=== PATIENT | male | born 1930 | race Caucasian/White ===

== ENCOUNTER 2020-03-26 12:12 | Inpatient (IN) | payer MEDICARE, OTHER ==
--- NOTE | 2020-03-26 12:43 | ER Document Report ---
ED Medical Screen (RME) - General Chief Complaint: Edema Stated Complaint: FLUID BUIDLING UP IN BODY Time Seen by Provider: 03/26/20 12:34 Primary Care Provider: FRANCISCA MARQUIS MD [Primary Care Provider] - Follow up as needed Mode of Arrival: Wheelchair Information source: Patient Notes: HPI; 89-year-old male presents emergency room complaining of worsening fluid buildup. States been going on for several months is gotten worse over the past 3 weeks. He has been followed by Dr. Hicks. Was scheduled for an echocardiogram this morning was sent to the emergency room prior to the echo due to worsening fluid buildup. Patient states he has gained 11 pounds in the past week. PE: Alert and oriented x3. Moderate distress noted. Lungs diminished in the bases with right rales noted. No wheezes, no rhonchi. Heart bradycardic and rhythm without murmurs, rubs, gallops. 3+ pitting edema. I have greeted and performed a rapid initial assessment of this patient. A comprehensive ED assessment and evaluation of the patient, analysis of test results and completion of the medical decision making process will be conducted by additional ED providers. I have specifically instructed the patient or family members with the patient to immediately return to any nursing staff should anything change in the patient's condition or with their chief complaint. - Related Data Allergies/Adverse Reactions: Sulfa (Sulfonamide Antibiotics) Adverse Reaction (Mild, Verified 11/19/13 09:24) swelling of joint Home Medications: lasix, Crestor Past Medical History - Past Medical History Cardiac Medical History: Reports: Hx Heart Attack - 2005, Hx Hypertension - medicated Pulmonary Medical History: Denies: Hx Asthma Neurological Medical History: Denies: Hx Cerebrovascular Accident, Hx Seizures GI Medical History: Reports: Hx Hepatitis - 1951??. Denies: Hx Hiatal Hernia, Hx Ulcer Infectious Medical History: Reports: Hx Hepatitis - 1?? Past Surgical History: Reports: Hx Open Heart Surgery - 2005. Denies: Hx Pacemaker Physical Exam - Vital signs Vitals: Temp Pulse Resp BP Pulse Ox 98.2 F 57 L 16 151/44 H 96 03/26/20 12:17 03/26/20 12:17 03/26/20 12:17 03/26/20 12:17 03/26/20 12:17 Course - Vital Signs Vital signs: Temp Pulse Resp BP Pulse Ox 98.2 F 57 L 16 151/44 H 96 03/26/20 12:37 03/26/20 12:17 03/26/20 12:17 03/26/20 12:17 03/26/20 12:17 Doctor's Discharge - Discharge Referrals: FRANCISCA MARQUIS MD [Primary Care Provider] - Follow up as needed
[2020-03-26 13:08] LABS: APPEARANCE,URINE CLEAR; BILIRUBIN,URINE NEGATIVE (NEGATIVE); COLOR,URINE YELLOW; GLUCOSE, URINE NEGATIVE (NEGATIVE); KETONES,URINE NEGATIVE (NEGATIVE); LEUKOCYTE ESTERASE,URINE LARGE (NEGATIVE); NITRITE,URINE NEGATIVE (NEGATIVE); PROTEIN,URINE 30 mg/dL (NEGATIVE); URINE SPECIFIC GRAVITY 1.009; UROBILINOGEN,URINE NEGATIVE mg/dL (<2.0)
--- NOTE | 2020-03-26 13:18 | RADIOLOGY REPORT (SQ) ---
EXAM DESCRIPTION: CHEST SINGLE VIEW IMAGES COMPLETED DATE/TIME: 03/26/2020 1:06 pm REASON FOR STUDY: Dyspnea COMPARISON: None. EXAM PARAMETERS: NUMBER OF VIEWS: One view. TECHNIQUE: Single frontal radiographic view of the chest acquired. RADIATION DOSE: NA LIMITATIONS: None. FINDINGS: LUNGS AND PLEURA: No opacities, masses or pneumothorax. Possible small left pleural effus ion, poorly visualized. MEDIASTINUM AND HILAR STRUCTURES: No masses. Contour normal. HEART AND VASCULAR STRUCTURES: Mild cardiac enlargement. BONES: No acute findings. HARDWARE: Sternotomy wires. OTHER: No other significant finding. IMPRESSION: MILD CARDIOMEGALY. POSSIBLE SMALL LEFT PLEURAL EFFUSION. TECHNICAL DOCUMENTATION: JOB ID: [id number] 2010 [employer]- All Rights Reserved Reading location - IP/workstation name: [email or web address]
[2020-03-26 13:42] LABS: ABSOLUTE EOSINOPHILS # (AUTO) 0.1 10^3/uL (0.0-0.6); ABSOLUTE LYMPHOCYTES (AUTO) 0.7 10^3/uL (0.5-4.7); ABSOLUTE MONOCYTES (AUTO) 0.6 10^3/uL (0.1-1.4); ABSOLUTE NEUT (AUTO) 4.5 10^3/uL (1.7-8.2); BASOPHILS % (AUTO) 0.5 % (0-2); HEMATOCRIT 32.6 % (37.9-51.0); HEMOGLOBIN 10.6 g/dL (13.5-17.0); LYMPHOCYTES % (AUTO) 12.2 % (13-45); MEAN CORPUSCULAR HEMOGLOBIN 27.5 pg (27.0-33.4); MEAN CORPUSCULAR HGB CONC 32.6 g/dL (32.0-36.0); MEAN CORPUSCULAR VOLUME 85 fl (80-97); MONOCYTES % (AUTO) 9.4 % (3-13); PLATELET COUNT 130 10^3/uL (150-450); RED BLOOD COUNT 3.86 10^6/uL (4.35-5.55); RED CELL DISTRIBUTION WIDTH 16.3 % (11.5-14.0); SEGMENTED NEUTROPHILS % (AUTO) 75.9 % (42-78); TOTAL CELLS COUNTED % (AUTO) 100 %; WHITE BLOOD COUNT 5.9 10^3/uL (4.0-10.5)
[2020-03-26 14:04] LABS: ALBUMIN 3.7 g/dL (3.5-5.0); ALKALINE PHOSPHATASE 66 U/L (38-126); ANION GAP 8 (5-19); ASPARTATE AMINO TRANSFERASE 26 U/L (17-59); BILIRUBIN,TOTAL 0.8 mg/dL (0.2-1.3); BLOOD UREA NITROGEN 32 mg/dL (7-20); CALCIUM 8.9 mg/dL (8.4-10.2); CARBON DIOXIDE 20 mmol/L (22-30); CHLORIDE 111 mmol/L (98-107); CREATINE KINASE 171 U/L (55-170); GLUCOSE 118 mg/dL (75-110); POTASSIUM 4.7 mmol/L (3.6-5.0); TOTAL PROTEIN 6.6 g/dL (6.3-8.2)
[2020-03-26 14:31] LABS: CREATINE KINASE MB 4.51 ng/mL (<4.55); NT PRO BNP 2750 pg/mL (<450)
[2020-03-26 14:35] LABS: TROPONIN I < 0.012 ng/mL
[2020-03-26] MEDS ORDERED: FUROSEMIDE INJ/PF 40 MG/4 ML SDV IV ONE (17:11)
--- NOTE | 2020-03-26 17:14 | ER Document Report ---
ED General - General Chief Complaint: Edema Stated Complaint: FLUID BUIDLING UP IN BODY Time Seen by Provider: 03/26/20 12:34 Mode of Arrival: Wheelchair - HPI Notes: There is an 89-year-old gentleman who presents to the emergency department for evaluation. He states he has had significant shortness of breath, dyspnea on exertion, and paroxysmal nocturnal dyspnea. He is gained about 12 pounds in the last 10 days. He went to have an echocardiogram at his licensed occupational therapist office this morning, and they could not get good pictures. Because of his significant dyspnea he was sent here to the emergency department for further evaluation. The patient denies any associated chest pain. He states he is only short of breath. He is not changed any of his medications as of late. He is still urinating normally, denies any dysuria, hematuria, urinary frequency. - Related Data Allergies/Adverse Reactions: Sulfa (Sulfonamide Antibiotics) Adverse Reaction (Mild, Verified 11/19/13 09:24) swelling of joint Home Medications: lasix, Crestor, metoprolol, Micardis Past Medical History - General Information source: Patient - Social History Smoking Status: Former Smoker Family History: Reviewed & Not Pertinent Patient has homicidal ideation: No - Past Medical History Cardiac Medical History: Reports: Hx Coronary Artery Disease, Hx Heart Attack - 2005, Hx Hypertension - medicated Pulmonary Medical History: Denies: Hx Asthma Neurological Medical History: Denies: Hx Cerebrovascular Accident, Hx Seizures GI Medical History: Reports: Hx Gastroesophageal Reflux Disease, Hx Hepatitis - 1951??. Denies: Hx Hiatal Hernia, Hx Ulcer Musculoskeletal Medical History: Reports Hx Arthritis - Rheumatoid arthritis Infectious Medical History: Reports: Hx Hepatitis - 1951?? Past Surgical History: Reports: Hx Open Heart Surgery - 2005. Denies: Hx Pacemaker Review of Systems - Review of Systems Cardiovascular: See HPI Respiratory: See HPI Musculoskeletal: See HPI -: Yes All other systems reviewed and negative Physical Exam - Vital signs Vitals: Temp Pulse Resp BP Pulse Ox 98.2 F 57 L 16 151/44 H 96 03/26/20 12:17 03/26/20 12:17 03/26/20 12:17 03/26/20 12:17 03/26/20 12:17 Course - Re-evaluation Re-evalutation: 03/26/20 17:22 Patient presents to the emergency department for evaluation. He was sent in from his licensed occupational therapist's office. He appears to be in significant heart failure. Chest x-ray was read by radiology as being only minimally fluid overloaded, but I do suspect CHF in this patient. I spoke with Dr. Hicks about him, patient will be given 80 mg of IV Lasix. Dr. Hicks will see him in the morning. I spoke with Dr. Tyson, he will admit the patient for further care. - Vital Signs Vital signs: Temp Pulse Resp BP Pulse Ox 98.4 F 57 L 20 130/89 H 96 03/26/20 19:01 03/26/20 12:17 03/26/20 19:01 03/26/20 19:01 03/26/20 19:01 - Laboratory Result Diagrams: 03/26/20 13:20 03/26/20 13:20 Laboratory results interpreted by me: 03/26/20 03/26/20 03/26/20 12:41 13:20 13:20 RBC 3.86 L Hgb 10.6 L Hct 32.6 L RDW 16.3 H Plt Count 130 L Lymph % (Auto) 12.2 L Chloride 111 H Carbon Dioxide 20 L BUN 32 H Est GFR (MDRD) Non-Af 55 L Glucose 118 H Creatine Kinase 171 H NT-Pro-B Natriuret Pep Urine Protein 30 H Urine Blood SMALL H Ur Leukocyte Esterase LARGE H 03/26/20 13:20 RBC Hgb Hct RDW Plt Count Lymph % (Auto) Chloride Carbon Dioxide BUN Est GFR (MDRD) Non-Af Glucose Creatine Kinase NT-Pro-B Natriuret Pep 2750 H Urine Protein Urine Blood Ur Leukocyte Esterase - Diagnostic Test Radiology reviewed: Image reviewed, Reports reviewed Radiology results interpreted by me: 03/26/20 17:24 Chest X-Ray 03/26/20 12:40 IMPRESSION: MILD CARDIOMEGALY. POSSIBLE SMALL LEFT PLEURAL EFFUSION. Fluid overload per my interpretation. - EKG Interpretation by Me Additional EKG results interpreted by me: 03/26/20 17:24 Sinus with bigeminy, normal axis and intervals. No acute ST changes concerning for infarction. No old studies available for comparison. Discharge - Discharge Clinical Impression: New onset of congestive heart failure Condition: Stable Disposition: ADMITTED INPATIENT Admitting Provider: Marbella (Hospitalist) Unit Admitted: Telemetry
[2020-03-26] MEDS ORDERED: ACETAMINOPHEN 325 MG TABLET PO PRN (18:23)
[2020-03-26] MEDS ORDERED: PROMETHAZINE HCL INJ 25 MG/1 ML VIAL IV PRN (18:23)
[2020-03-26] MEDS ORDERED: MAGNESIUM HYDROXIDE SUSP 30 ML UDCUP PO PRN (18:23)
[2020-03-26] MEDS ORDERED: MAG HYDROX/AL HYDROX/SIMETH SUSP 30 ML UDCUP PO PRN (18:23)
--- NOTE | 2020-03-26 18:23 | PDOC H&P ---
History of Present Illness Admission Date/PCP: 03/26/20 17:28 FRANCISCA MARQUIS MD Patient complains of: Shortness of breath and weight gain History of Present Illness: AUTUMN WATSON is a 89 year old male with a history of coronary artery bypass graft surgery presents the emergency department for increased shortness of breath. He states that over the last 10 days he has gained 11 pounds. He was at Dr. Hicks's office today getting an echocardiogram. Unfortunately he was too short of breath to complete the study and he was referred to the emergency department. He is found to be in ventricular bigeminy. He has pronounced lower extremity edema. His BUN is elevated as well. The patient will be admitted to the hospitalist service with Dr. Hicks consulted. An echocardiogram has been ordered as the study earlier today was incomplete. He will be monitored on telemetry with aggressive diuresis and serial laboratory studies monitoring rebecca ctrolytes and renal function. Past Medical History Cardiac Medical History: Reports: Coronary Artery Disease, Myocardial Infarction - 2005, Hypertension - medicated Pulmonary Medical History: Denies: Asthma Neurological Medical History: Denies: Seizures Endocrine Medical History: Reports: Diabetes Mellitus Type 2 GI Medical History: Reports: Gastroesophageal Reflux Disease, Hepatitis - 1950?? 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 Hematology: Denies: Anemia, Sickle Cell Disease Past Surgical History Past Surgical History: Reports: Coronary Artery Bypass Graft, Other - Shrapnel in the left and right testicle Denies: Pacemaker Social History Information Source: Patient Occupation: Retired Lives with: Alone Smoking Status: Former Smoker Electronic Cigarette use?: No Frequency of Alcohol Use: None Hx Recreational Drug Use: No Hx Prescription Drug Abuse: No - Advance Directive Resuscitation Status: Full Code Family History Family History: CAD, DM Parental Family History Reviewed: Yes Children Family History Reviewed: Yes Sibling(s) Family History Reviewed.: Yes Medication/Allergy Home Medications: Esomeprazole Magnesium 40 mg PO DAILY 03/26/20 Furosemide [Lasix 20 mg Tablet] 20 mg PO DAILY 03/26/20 Isosorbide Mononitrate [Imdur 60 mg Tablet.er] 60 mg PO Q12 03/26/20 Metoprolol Succinate [Toprol Xl 25 mg Tab.sr] 25 mg PO DAILY 03/26/20 Tamsulosin HCl [Flomax 0.4 mg Cap.sr] 0.4 mg PO QPM 03/26/20 Telmisartan 80 mg PO DAILY 03/26/20 Allergies/Adverse Reactions: Sulfa (Sulfonamide Antibiotics) Adverse Reaction (Mild, Verified 11/19/13 09:24) swelling of joint Review of Systems All systems: reviewed and no additional remarkable complaints except as stated Constitutional: PRESENT: weight gain Cardiovascular: PRESENT: dyspnea on exertion, edema Gastrointestinal: PRESENT: heartburn Genitourinary: PRESENT: nocturia Integumentary: PRESENT: other - Dry skin on legs Physical Exam Vital Signs: Temp Pulse Resp BP Pulse Ox 98.2 F 57 L 20 153/71 H 100 03/26/20 12:37 03/26/20 12:17 03/26/20 17:01 03/26/20 17:01 03/26/20 17:01 Intake & Output 03/25/20 03/26/20 03/27/20 06:59 06:59 06:59 Weight 112.491 kg General appearance: PRESENT: cooperative, mild distress, well-developed, well- nourished Head exam: PRESENT: atraumatic, normocephalic Eye exam: PRESENT: conjunctiva pink, EOMI, PERRLA. ABSENT: nystagmus, scleral icterus Ear exam: PRESENT: normal external ear exam. ABSENT: bleeding, drainage Mouth exam: PRESENT: moist, tongue midline Teeth exam: PRESENT: poor dentation Respiratory exam: PRESENT: rales, symmetrical, unlabored. ABSENT: prolonged expiratory phas, rhonchi, tachypnea, wheezes Cardiovascular exam: PRESENT: +S1, +S2, other - Regularly irregular GI/Abdominal exam: PRESENT: normal bowel sounds, soft. ABSENT: distended, guarding, tenderness Rectal exam: PRESENT: deferred Gentrourinary exam: ABSENT: indwelling catheter Extremities exam: PRESENT: pedal edema, +2 edema Musculoskeletal exam: PRESENT: ambulatory. ABSENT: deformity Neurological exam: PRESENT: alert, awake, oriented to person, oriented to place, oriented to time, oriented to situation, CN II-XII grossly intact. ABSENT: altered, motor sensory deficit Psychiatric exam: PRESENT: appropriate affect, normal mood. ABSENT: agitated, anxious Focused psych exam: ABSENT: delusional, paranoid, restlessness Skin exam: PRESENT: dry, erythema - Faint erythema lower extremities, warm, other - Dry scaly skin especially right ankle Results Laboratory Results: 03/26/20 13:20 03/26/20 13:20 03/26/20 03/26/20 03/26/20 12:41 13:20 13:20 WBC 5.9 RBC 3.86 L Hgb 10.6 L Hct 32.6 L MCV 85 MCH 27.5 MCHC 32.6 RDW 16.3 H Plt Count 130 L Seg Neutrophils % 75.9 Sodium 139.0 Potassium 4.7 Chloride 111 H Carbon Dioxide 20 L Anion Gap 8 BUN 32 H Creatinine 1.25 Est GFR ( Amer) > 60 Glucose 118 H Calcium 8.9 Total Bilirubin 0.8 AST 26 Alkaline Phosphatase 66 Total Protein 6.6 Albumin 3.7 Urine Color YELLOW Urine Appearance CLEAR Urine pH 5.0 Ur Specific Show Low 1.009 Urine Protein 30 H Urine Glucose (UA) NEGATIVE Urine Ketones NEGATIVE Urine Blood SMALL H Urine Nitrite NEGATIVE Ur Leukocyte Esterase LARGE H Urine WBC (Auto) 32 Urine RBC (Auto) 4 03/26/20 03/26/20 13:20 13:20 Creatine Kinase 171 H CK-MB (CK-2) 4.51 Troponin I < 0.012 NT-Pro-B Natriuret Pep 2750 H Impressions: Chest X-Ray 03/26/20 12:40 IMPRESSION: MILD CARDIOMEGALY. POSSIBLE SMALL LEFT PLEURAL EFFUSION. Assessment and Plan - Diagnosis (1) Acute respiratory failure with hypoxia Is this a current diagnosis for this admission?: Yes Plan: 03/26/2020 Due to heart failure. Supplemental oxygen to keep saturation greater than or equal to 93% (2) Acute exacerbation of congestive heart failure Qualifiers: Heart failure type: unspecified Qualified Code(s): I50.9 - Heart failure, unspecified Is this a current diagnosis for this admission?: Yes Plan: 03/26/[address] Hicks's office was incomplete. I have ordered an echocardiogram to be done today. Unable to tell if heart failure is diastolic, systolic or confined. (3) Ventricular bigeminy Is this a current diagnosis for this admission?: Yes Plan: 03/26/2020 No old EKG to compare. Will hold beta-neel for tonight. Monitor on telemetry. Continue to monitor electrolytes. (4) Prerenal azotemia Is this a current diagnosis for this admission?: Yes Plan: 03/26/2020 Will recheck chemistries tomorrow. No IV fluid at this time. Will monitor closely. (5) Hyperglycemia due to type 2 diabetes mellitus Qualifiers: Diabetes mellitus senior care insulin use: without senior care use Qualified Code(s): E11.65 - Type 2 diabetes mellitus with hyperglycemia Is this a current diagnosis for this admission?: Yes Plan: 03/26/2020 Accu-Cheks and sliding scale insulin. Will check hemoglobin A1c. Appears to be controlled with diet alone. Diabetic diet ordered. (6) Gastroesophageal reflux Qualifiers: Esophagitis presence: without esophagitis Qualified Code(s): K21.9 - Gastro-esophageal reflux disease without esophagitis Is this a current diagnosis for this admission?: Yes Plan: 03/26/2020 Substitute pantoprazole for esomeprazole (7) Hypertension Qualifiers: Hypertension type: essential hypertension Qualified Code(s): I10 - Essential (primary) hypertension Is this a current diagnosis for this admission?: Yes Plan: 03/26/2020 Continue telmisartan. Significantly increased dose of furosemide. Holding metoprolol for tonight. Monitor blood pressures. (8) Benign prostatic hyperplasia with nocturia Is this a current diagnosis for this admission?: Yes Plan: 03/26/2020 Continue Flomax (9) Lower extremity edema Is this a current diagnosis for this admission?: Yes Plan: 03/26/2020 80 mg of furosemide IV twice a day. Elevate legs when possible. (10) Acute cystitis Qualifiers: Hematuria presence: without hematuria Qualified Code(s): N30.00 - Acute cystitis without hematuria Is this a current diagnosis for this admission?: Yes Plan: 03/26/2020 Urinalysis was positive. Culture sent. No antibiotics just yet. White blood cell count does not reflect an infection. Patient is afebrile (11) Anemia, chronic disease Is this a current diagnosis for this admission?: Yes Plan: 03/26/2020 Most likely anemia of chronic disease. Consider adding iron supplement. (12) Dry skin dermatitis Is this a current diagnosis for this admission?: Yes Plan: 03/26/2020 Will apply Aquaphor which is excellent for dry scaly skin. - Time Time Spent with patient: 35 or more minutes Medications reviewed and adjusted accordingly: Yes Anticipated discharge: Home - Inpatient Certification Based on my medical assessment, after consideration of the patient's comorbidities, presenting symptoms, or acuity I expect that the services needed warrant INPATIENT care.: Yes I certify that my determination is in accordance with my understanding of Medicare's requirements for reasonable and necessary INPATIENT services [42 CFR 412.3e].: Yes Medical Necessity: Need Close Monitoring Due to Risk of Patient Decompensation, Need For Continuous Telemetry Monitoring, Risk of Complication if Not Cared For in Hospital Post Hospital Care: D/C Riding Double Documentation
[2020-03-26 21:06] LABS: CREATINE KINASE MB 4.58 ng/mL (<4.55); TROPONIN I 0.014 ng/mL
[2020-03-26] MEDS: ATORVASTATIN CALCIUM 40 MG TABLET PO SCH (21:10)
[2020-03-26] MEDS: ISOSORBIDE MONONITRATE 60 MG TAB.ER.24H PO SCH (21:10)
[2020-03-26] MEDS: ASPIRIN 81 MG TABLET, ENT COATED PO SCH (21:10)
[2020-03-26] MEDS: FUROSEMIDE INJ/PF 100 MG/10 ML SDV IV SCH (21:11)
[2020-03-26] MEDS: HEPARIN SOD (PORCINE) 5,000 UNIT/ML 1 ML VIAL SUBCUT SCH (21:11)
[2020-03-27 02:44] LABS: ABSOLUTE EOSINOPHILS # (AUTO) 0.2 10^3/uL (0.0-0.6); ABSOLUTE LYMPHOCYTES (AUTO) 0.8 10^3/uL (0.5-4.7); ABSOLUTE MONOCYTES (AUTO) 0.6 10^3/uL (0.1-1.4); ABSOLUTE NEUT (AUTO) 4.3 10^3/uL (1.7-8.2); BASOPHILS % (AUTO) 0.8 % (0-2); EOSINOPHILS % (AUTO) 2.7 % (0-6); HEMATOCRIT 33.4 % (37.9-51.0); HEMOGLOBIN 10.9 g/dL (13.5-17.0); LYMPHOCYTES % (AUTO) 13.9 % (13-45); MEAN CORPUSCULAR HEMOGLOBIN 27.4 pg (27.0-33.4); MEAN CORPUSCULAR HGB CONC 32.6 g/dL (32.0-36.0); MEAN CORPUSCULAR VOLUME 84 fl (80-97); MONOCYTES % (AUTO) 10.1 % (3-13); PLATELET COUNT 128 10^3/uL (150-450); RED BLOOD COUNT 3.96 10^6/uL (4.35-5.55); RED CELL DISTRIBUTION WIDTH 16.5 % (11.5-14.0); SEGMENTED NEUTROPHILS % (AUTO) 72.5 % (42-78); TOTAL CELLS COUNTED % (AUTO) 100 %; WHITE BLOOD COUNT 5.9 10^3/uL (4.0-10.5)
[2020-03-27 03:06] LABS: ANION GAP 12 (5-19); BLOOD UREA NITROGEN 32 mg/dL (7-20); CALCIUM 9.4 mg/dL (8.4-10.2); CARBON DIOXIDE 18 mmol/L (22-30); CHLORIDE 109 mmol/L (98-107); CHOLESTEROL 109.05 mg/dL (0-200); CREATINE KINASE 188 U/L (55-170); GLUCOSE 111 mg/dL (75-110); POTASSIUM 4.2 mmol/L (3.6-5.0); TRIGLYCERIDES 82 mg/dL (<150)
[2020-03-27 03:17] LABS: DIRECT LDL 57 mg/dL (<100)
[2020-03-27 04:17] LABS: CREATINE KINASE MB 4.97 ng/mL (<4.55); TROPONIN I 0.013 ng/mL
[2020-03-27] MEDS: HEPARIN SOD (PORCINE) 5,000 UNIT/ML 1 ML VIAL SUBCUT SCH ×3 (05:13→21:26)
[2020-03-27] MEDS: PANTOPRAZOLE SODIUM 40 MG TABLET.DR PO SCH (06:31)
[2020-03-27 09:55] LABS: CREATINE KINASE MB 4.43 ng/mL (<4.55)
[2020-03-27] MEDS: FUROSEMIDE INJ/PF 100 MG/10 ML SDV IV SCH ×2 (09:59→21:31)
[2020-03-27] MEDS: LOSARTAN POTASSIUM 50 MG TABLET PO SCH (10:00)
[2020-03-27] MEDS: PANTOT AC/MIN OIL/PET HY-PHL OINT 50 GM TOP SCH ×2 (10:00→17:52)
[2020-03-27] MEDS ORDERED: (PENDING PHARMACY ID) (Telmisartan [Telmisartan] 80 MG) PO SCH (10:00)
[2020-03-27] MEDS: ISOSORBIDE MONONITRATE 60 MG TAB.ER.24H PO SCH ×2 (10:06→21:31)
[2020-03-27 10:10] LABS: TROPONIN I < 0.012 ng/mL
--- NOTE | 2020-03-27 12:07 | PDOC CONSULTATION ---
Consultation Consult Date: 03/27/20 Attending physician:: JOHAN DHILLON Provider Consulted: MARTI FLYNN Consult reason:: CHF History of Present Illness Admission Date/PCP: 03/26/20 17:28 FRANCISCA MARQUIS MD History of Present Illness: AUTUMN WATSON is a 89 year old male with history of coronary artery disease status post 2 vessel CABG in 2005, hypertension, hyperlipidemia, myocardial infarction, heart failure, diabetes and sleep apnea who was admitted to our facility yesterday for evaluation of dyspnea and lower extremity edema as well as weight gain. I had been following this patient in my office for quite some time for chronic dyspnea. Unfortunately he began to gain weight and yesterday he was up to a weight gain of 11 pounds associated with shortness of breath and significant lower extremity edema. Today he is found sitting at the edge of the bed feeling slightly better. He has no new cardiac complaints. His LHC in May 2017 was significant for a 60-70% long distal stenosis of the SVG to the right PDA. No intervention was undertaken as the stenosis corresponded to an area of infarct on nuclear stress test without ischemia and because of the high risk nature of the potential intervention. His echocardiogram in the office several years ago demonstrated a normal ejection fraction. His lower extremity Doppler demonstrated 50-74% stenosis in the right lower extremity. His thallium viability study on 01/03/19 demonstrated that his inferior apical and basilar inferior ochoa are nonviable which corresponded to his 60-70% stenosis in the graft to the PDA. Physical exam on 03/27/2020: GENERAL: Pleasant and conversational. Oriented x3 with normal mood. Not in acute distress. Well groomed and well developed. HEENT: Normocephalic, atraumatic. Pupils equal. Sclerae anicteric. Oropharynx moist. NECK: No JVD. No carotid bruits. LUNGS: Clear to auscultation bilaterally with diminished breath sounds at both bases. Normal respiratory effort without the use of accessory muscles or intercostal retractions. CARDIOVASCULAR: Regular rate and rhythm, normal S1 and S2 without murmurs, rubs, or gallops. PMI not displaced. EXTREMITIES: 1+ pitting edema bilaterally, diffuse erythema bilaterally, no cyanosis, no clubbing. +2 pulses femoral and pedal pulses bilaterally. SKIN: No lesions or rashes. MUSCULOSKELETAL: No chest tenderness to palpation. NEUROLOGIC: Nonfocal. No gross sensory or motor deficits bilateral upper or lower extremities. Past Medical History Cardiac Medical History: Reports: Coronary Artery Disease, Myocardial Infarction - 2006, Hypertension - medicated Pulmonary Medical History: Denies: Asthma Neurological Medical History: Denies: Seizures Endocrine Medical History: Reports: Diabetes Mellitus Type 2 GI Medical History: Reports: Gastroesophageal Reflux Disease, Hepatitis - 1950?? 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 Hematology: Denies: Anemia, Sickle Cell Disease Past Surgical History Past Surgical History: Reports: Coronary Artery Bypass Graft, Other - Shrapnel in the left and right testicle Denies: Pacemaker Social History Lives with: Alone Smoking Status: Former Smoker Electronic Cigarette use?: No Frequency of Alcohol Use: None Hx Recreational Drug Use: No Hx Prescription Drug Abuse: No - Advance Directive Resuscitation Status: Full Code Family History Family History: Reviewed & Not Pertinent Parental Family History Reviewed: Yes Children Family History Reviewed: Yes Sibling(s) Family History Reviewed.: Yes Medication/Allergy Home Medications: Esomeprazole Magnesium 40 mg PO DAILY 03/26/20 Furosemide [Lasix 20 mg Tablet] 20 mg PO DAILY 03/26/20 Isosorbide Mononitrate [Imdur 60 mg Tablet.er] 60 mg PO Q12 03/26/20 Metoprolol Succinate [Toprol Xl 25 mg Tab.sr] 25 mg PO DAILY 03/26/20 Tamsulosin HCl [Flomax 0.4 mg Cap.sr] 0.4 mg PO QPM 03/26/20 Telmisartan 80 mg PO DAILY 03/26/20 Allergies/Adverse Reactions: Sulfa (Sulfonamide Antibiotics) Adverse Reaction (Mild, Verified 11/19/13 09:24) swelling of joint Physical Exam Vital Signs: Temp Pulse Resp BP Pulse Ox 98.4 F 63 20 130/89 H 96 03/26/20 19:01 03/27/20 02:00 03/26/20 19:01 03/26/20 19:01 03/26/20 19:01 Intake & Output 03/26/20 03/27/20 03/28/20 06:59 06:59 06:59 Intake Total 450 Output Total 0 Balance -1630 Weight 101.1 kg Results Laboratory Results: 03/27/20 02:27 03/27/20 02:27 03/26/20 03/26/20 03/26/20 12:41 13:20 13:20 WBC 5.9 RBC 3.86 L Hgb 10.6 L Hct 32.6 L MCV 85 MCH 27.5 MCHC 32.6 RDW 16.3 H Plt Count 130 L Seg Neutrophils % 75.9 Sodium 139.0 Potassium 4.7 Chloride 111 H Carbon Dioxide 20 L Anion Gap 8 BUN 32 H Creatinine 1.25 Est GFR ( Amer) > 60 Glucose 118 H Calcium 8.9 Magnesium Total Bilirubin 0.8 AST 26 Alkaline Phosphatase 66 Total Protein 6.6 Albumin 3.7 Triglycerides Cholesterol LDL Cholesterol Direct VLDL Cholesterol HDL Cholesterol Urine Color YELLOW Urine Appearance CLEAR Urine pH 5.0 Ur Specific Mclean 1.009 Urine Protein 30 H Urine Glucose (UA) NEGATIVE Urine Ketones NEGATIVE Urine Blood SMALL H Urine Nitrite NEGATIVE Ur Leukocyte Esterase LARGE H Urine WBC (Auto) 32 Urine RBC (Auto) 4 03/27/20 03/27/20 02:27 02:27 WBC 5.9 RBC 3.96 L Hgb 10.9 L Hct 33.4 L MCV 84 MCH 27.4 MCHC 32.6 RDW 16.5 H Plt Count 128 L Seg Neutrophils % 72.5 Sodium 138.9 Potassium 4.2 Chloride 109 H Carbon Dioxide 18 L Anion Gap 12 BUN 32 H Creatinine 1.31 H Est GFR ( Amer) > 60 Glucose 111 H Calcium 9.4 Magnesium 1.9 Total Bilirubin AST Alkaline Phosphatase Total Protein Albumin Triglycerides 82 Cholesterol 109.05 LDL Cholesterol Direct 57 VLDL Cholesterol 16.0 HDL Cholesterol 42 Urine Color Urine Appearance Urine pH Ur Specific Mclean Urine Protein Urine Glucose (UA) Urine Ketones Urine Blood Urine Nitrite Ur Leukocyte Esterase Urine WBC (Auto) Urine RBC (Auto) 03/26/20 03/26/20 03/26/20 13:20 13:20 20:24 Creatine Kinase 171 H 170 CK-MB (CK-2) 4.51 Troponin I < 0.012 NT-Pro-B Natriuret Pep 2750 H 03/26/20 03/27/20 03/27/20 20:24 02:27 02:27 Creatine Kinase 188 H CK-MB (CK-2) 4.58 H 4.97 H Troponin I 0.014 0.013 NT-Pro-B Natriuret Pep 3750 H Impressions: Chest X-Ray 03/26/20 12:40 IMPRESSION: MILD CARDIOMEGALY. POSSIBLE SMALL LEFT PLEURAL EFFUSION. 03/27/20 02:27 03/27/20 02:27 MCV 84 fl (80-97) 03/27/20 02:27 MCH 27.4 pg (27.0-33.4) 03/27/20 02:27 MCHC 32.6 g/dL (32.0-36.0) 03/27/20 02:27 RDW 16.5 % (11.5-14.0) H 03/27/20 02:27 Seg Neutrophils % 72.5 % (42-78) 03/27/20 02:27 Chloride 109 mmol/L (98-107) H 03/27/20 02:27 Carbon Dioxide 18 mmol/L (22-30) L 03/27/20 02:27 Anion Gap 12 (5-19) 03/27/20 02:27 Est GFR ( Amer) > 60 (>60) 03/27/20 02:27 Glucose 111 mg/dL (75-110) H 03/27/20 02:27 Calcium 9.4 mg/dL (8.4-10.2) 03/27/20 02:27 Magnesium 1.9 mg/dL (1.6-2.3) 03/27/20 02:27 Total Bilirubin 0.8 mg/dL (0.2-1.3) 03/26/20 13:20 AST 26 U/L (17-59) 03/26/20 13:20 Alkaline Phosphatase 66 U/L (38-126) 03/26/20 13:20 Total Protein 6.6 g/dL (6.3-8.2) 03/26/20 13:20 Albumin 3.7 g/dL (3.5-5.0) 03/26/20 13:20 Triglycerides 82 mg/dL (<150) 03/27/20 02:27 Cholesterol 109.05 mg/dL (0-200) 03/27/20 02:27 LDL Cholesterol Direct 57 mg/dL (<100) 03/27/20 02:27 VLDL Cholesterol 16.0 mg/dL (10-31) 03/27/20 02:27 HDL Cholesterol 42 mg/dL (>40) 03/27/20 02:27 Urine Color YELLOW 03/26/20 12:41 Urine Appearance CLEAR 03/26/20 12:41 Urine pH 5.0 (5.0-9.0) 03/26/20 12:41 Ur Specific Mclean 1.009 03/26/20 12:41 Urine Protein 30 mg/dL (NEGATIVE) H 03/26/20 12:41 Urine Glucose (UA) NEGATIVE mg/dL (NEGATIVE) 03/26/20 12:41 Urine Ketones NEGATIVE mg/dL (NEGATIVE) 03/26/20 12:41 Urine Blood SMALL (NEGATIVE) H 03/26/20 12:41 Urine Nitrite NEGATIVE (NEGATIVE) 03/26/20 12:41 Ur Leukocyte Esterase LARGE (NEGATIVE) H 03/26/20 12:41 Urine WBC (Auto) 32 /HPF 03/26/20 12:41 Urine RBC (Auto) 4 /HPF 03/26/20 12:41 03/26/20 03/26/20 03/26/20 13:20 13:20 20:24 Creatine Kinase 171 H 170 CK-MB (CK-2) 4.51 Troponin I < 0.012 NT-Pro-B Natriuret Pep 2750 H 03/26/20 03/27/20 03/27/20 20:24 02:27 02:27 Creatine Kinase 188 H CK-MB (CK-2) 4.58 H 4.97 H Troponin I 0.014 0.013 NT-Pro-B Natriuret Pep 3750 H Current Medication List Generic Name Dose Route Start Last Admin Trade Name Freq PRN Reason Stop Dose Admin Acetaminophen 650 mg 03/26/20 18:23 Tylenol 325 Mg Tablet PO 04/25/20 18:22 Q4HP PRN pain or temp greater than 101F Al Hydrox/Mg Hydrox/Simethicone 30 ml 03/26/20 18:23 Maalox Plus Susp 30 Udcup PO 04/25/20 18:22 Q4HP PRN HEARTBURN Aspirin 81 mg 03/26/20 22:00 03/26/20 21:10 Ecotrin 81 Mg Ec Tablet PO 04/25/20 21:59 81 mg QHS OUMOU Administration Atorvastatin Calcium 40 mg 03/26/20 22:00 03/26/20 21:10 Lipitor 40 Mg Tablet PO 07/04/20 21:59 40 mg QHS OUMOU Administration Furosemide 80 mg 03/26/20 22:00 03/26/20 21:11 Lasix Inj/Pf 100 Mg/10 Ml Sdv IV 04/25/20 21:59 80 mg Q12 OUMOU Administration Heparin Sodium (Porcine) 5,000 unit 03/26/20 22:00 03/27/20 05:13 Heparin Inj 5,000 Units/Ml 1 Ml Vial SUBCUT 04/25/20 21:59 Not Given Q8 OUMOU Hydrophilic Ointment 1 applic 03/27/20 10:00 Aquaphor W-Letty Heal Oint 50 Gm TOP 04/26/20 09:59 BID OUMOU Isosorbide Mononitrate 60 mg 03/26/20 22:00 03/26/20 21:10 Imdur 60 Mg Tablet.Er PO 04/25/20 21:59 60 mg Q12 OUMOU Administration Losartan Potassium 100 mg 03/27/20 10:00 Cozaar 50 Mg Tablet PO 04/26/20 09:59 DAILY OUMOU Magnesium Hydroxide 30 ml 03/26/20 18:23 Milk Of Magnesia 30 Ml Udcup PO 04/25/20 18:22 HSP PRN FOR CONSTIPATION Pantoprazole Sodium 40 mg 03/27/20 06:00 03/27/20 06:[address] Tablet PO 04/26/20 05:59 40 mg Q6AM OUMOU Administration Promethazine HCl 12.5 mg 03/26/20 18:23 Phenergan Inj 25 Mg/1 Ml Vial IV 04/25/20 18:22 Q4HP PRN FOR NAUSEA/VOMITING Sodium Chloride 2.5 ml 03/26/20 22:00 03/27/20 06:32 Saline Flush 2.5 Ml Monoject Prefil Syrin IV 04/25/20 21:59 2.5 ml Q8 OUMOU Administration Tamsulosin HCl 0.4 mg 03/27/20 18:00 Flomax 0.4 Mg Cap.Sr PO 04/26/20 17:59 QPM OUMOU Discontinued Medications Generic Name Dose Route Start Last Admin Trade Name Freq PRN Reason Stop Dose Admin Furosemide 80 mg 03/26/20 17:11 03/26/20 17:30 Lasix Inj/Pf 40 Mg/4 Ml Sdv IV 03/26/20 17:12 80 mg NOW ONE Administration Assessment & Plan - Diagnosis (1) CAD (coronary artery disease) Plan: 70% occlusion of the graft to the PDA which correlates with an area of infarct but no active ischemia on nuclear stress testing therefore no intervention was undertaken. His thallium viability study confirmed the presence of non-viability of the myocardium supplied by the graft to the PDA which is 60-70% stenosed therefore there is no reason to intervene in that vessel. He continues to deny angina and angina equivalents. His cardiac enzymes are normal during this hospitalization. Recommendations: -Continue with outpatient medical regimen. -Continue with clinical observation. (2) Heart failure with preserved ejection fraction Plan: Unfortunately the patient noticed a weight gain of 8 to 11 pounds at home associated with lower extremity edema and dyspnea. He feels better today after diuresing 2.3 L. His lower extremity edema is improved. Recommendations: -Continue diuresis with Lasix 80 mg twice daily IV. -Restrict fluid intake to 1500 cc daily. -Low sodium diet, less than 1500 mg daily. -Strict intake and output. -Daily weights. -Daily BMP. -Replace electrolytes as needed. (3) Hypertension Qualifiers: Hypertension type: essential hypertension Qualified Code(s): I10 - Essential (primary) hypertension Is this a current diagnosis for this admission?: Yes Plan: His blood pressure today is at goal. Recommendations: -Continue with current medical management.
--- NOTE | 2020-03-27 12:38 | EKG REPORT ---
SEVERITY:- ABNORMAL ECG - SINUS RHYTHM VENTRICULAR BIGEMINY LOW VOLTAGE IN FRONTAL LEADS NONSPECIFIC REPOL ABNORMALITY, DIFFUSE LEADS : Confirmed by: Joanie Daniels 27-Mar-2020 12:38:22
--- NOTE | 2020-03-27 12:38 | EKG REPORT ---
SEVERITY:- ABNORMAL ECG - SINUS RHYTHM VENTRICULAR BIGEMINY ABNRM R PROG, CONSIDER ASMI OR LEAD PLACEMENT : Confirmed by: Joanie Daniels 27-Mar-2020 12:38:16
--- NOTE | 2020-03-27 17:34 | PDOC PROGRESS REPORT ---
Subjective Progress Note for:: 03/27/20 Subjective:: No adverse events overnight. No new complaints. He still got a lot of swelling in his legs. He still has some dyspnea on exertion. He has had good urine output. Reason For Visit: NEW ONSET OF CONGESTIVE HEART FAILURE Physical Exam Vital Signs: Temp Pulse Resp BP Pulse Ox 97.6 F 58 L 18 126/68 H 95 03/27/20 15:54 03/27/20 15:54 03/27/20 15:54 03/27/20 15:54 03/27/20 15:54 Intake & Output 03/26/20 03/27/20 03/28/20 06:59 06:59 06:59 Intake Total 950 120 Output Total 3380 575 Balance -2430 -455 Weight 101.1 kg General appearance: PRESENT: no acute distress, cooperative, disheveled, obese Respiratory exam: PRESENT: crackles - Bibasilar, symmetrical, unlabored. ABSENT: accessory muscle use, chest wall tenderness, prolonged expiratory phas, rhonchi, tachypnea Cardiovascular exam: PRESENT: RRR - Occasional irregular beats, +S1, +S2 Pulses: PRESENT: normal carotid pulses Vascular exam: PRESENT: normal capillary refill GI/Abdominal exam: PRESENT: normal bowel sounds, soft. ABSENT: distended, guarding Extremities exam: PRESENT: pedal edema, +2 edema - Up to the thighs Musculoskeletal exam: PRESENT: normal inspection. ABSENT: deformity Neurological exam: PRESENT: alert, awake, oriented to person, oriented to place, oriented to situation Psychiatric exam: PRESENT: appropriate affect, normal mood Skin exam: PRESENT: dry, erythema - Cool symmetric bilateral lower extremity edema consistent with chronic venous insufficiency, warm Results Laboratory Results: 03/27/20 02:27 03/27/20 02:27 03/27/20 03/27/20 02:27 02:27 WBC 5.9 RBC 3.96 L Hgb 10.9 L Hct 33.4 L MCV 84 MCH 27.4 MCHC 32.6 RDW 16.5 H Plt Count 128 L Seg Neutrophils % 72.5 Sodium 138.9 Potassium 4.2 Chloride 109 H Carbon Dioxide 18 L Anion Gap 12 BUN 32 H Creatinine 1.31 H Est GFR ( Amer) > 60 Glucose 111 H Calcium 9.4 Magnesium 1.9 Triglycerides 82 Cholesterol 109.05 LDL Cholesterol Direct 57 VLDL Cholesterol 16.0 HDL Cholesterol 42 03/26/20 03/26/20 03/26/20 13:20 13:20 20:24 Creatine Kinase 171 H 170 CK-MB (CK-2) 4.51 Troponin I < 0.012 NT-Pro-B Natriuret Pep 2750 H 03/26/20 03/27/20 03/27/20 20:24 02:27 02:27 Creatine Kinase 188 H CK-MB (CK-2) 4.58 H 4.97 H Troponin I 0.014 0.013 NT-Pro-B Natriuret Pep 3750 H 03/27/20 03/27/20 09:03 09:03 Creatine Kinase 176 H CK-MB (CK-2) 4.43 Troponin I < 0.012 NT-Pro-B Natriuret Pep Impressions: Chest X-Ray 03/26/20 12:40 IMPRESSION: MILD CARDIOMEGALY. POSSIBLE SMALL LEFT PLEURAL EFFUSION. Assessment and Plan - Diagnosis (1) Acute exacerbation of congestive heart failure Qualifiers: Heart failure type: diastolic Qualified Code(s): I50.33 - Acute on chronic diastolic (congestive) heart failure Is this a current diagnosis for this admission?: Yes Plan: No recent echo on file, has been followed in the office by Dr. Hicks. Continued medical optimization and diuresis was recommended. No new echocardiogram was recommended. (2) Acute respiratory failure with hypoxia Is this a current diagnosis for this admission?: Yes Plan: We will continue to wean oxygen as tolerated. He is not on oxygen at home and so once we get his fluid status optimized to his dry weight he should be able to come off oxygen. (3) Benign prostatic hyperplasia with nocturia Is this a current diagnosis for this admission?: Yes Plan: Continue Flomax (4) CAD (coronary artery disease) Qualifiers: Coronary Disease-Associated Artery/Lesion type: [place] artery [place] vs. transplanted heart: [place] heart Associated angina: without angina Qualified Code(s): I25.10 - Atherosclerotic heart disease of [place] coronary artery without angina pectoris Is this a current diagnosis for this admission?: Yes Plan: Continue outpatient regimen (5) Hyperglycemia due to type 2 diabetes mellitus Qualifiers: Diabetes mellitus chcf insulin use: without head neck surgeon use Qualified Code(s): E11.65 - Type 2 diabetes mellitus with hyperglycemia Is this a current diagnosis for this admission?: Yes Plan: Accu-Cheks and sliding scale insulin. Appears to be controlled with diet alone. Diabetic diet ordered. (6) Hypertension Qualifiers: Hypertension type: essential hypertension Qualified Code(s): I10 - Essential (primary) hypertension Is this a current diagnosis for this admission?: Yes Plan: Control has improved on the current regimen - Time Time Spent with patient: 15-24 minutes
[2020-03-27] MEDS: TAMSULOSIN HCL 0.4 MG CAP.SR.24H PO SCH (17:47)
--- NOTE | 2020-03-27 20:18 | XCELERA REPORT ---
[address] [address] Transthoracic Echocardiogram Report Name: AUTUMN WATSON Age: 89 yrs Gender: Male : 1930 Patient Status: Inpatient Patient Location: [address] [place] [address] Study Date: 03/27/2020 05:41 PM Height: 68 in Weight: 248 lb BSA: 2.2 m2 Procedure: A complete two-dimensional transthoracic echocardiogram was performed (2D, M-mode, spectral and color flow Doppler). The study was technically limited with all images being suboptimal in quality. The apical views were difficult to obtain and are suboptimal in quality. The subcostal views were not obtained due to patient body habitus, patient unable to lay flat. Ectopy during study. Reason For Study: Exacerbation of heart failure Ordering Physician: JOHAN DHILLON Performed By: Sosa Blum Interpretation Summary Technically limited study secondary to the patient's body habitus. The subcostal views were not obtained due to patient body habitus, patient unable to lay flat. The left ventricle is normal in size, thickness and function. The left ventricular ejection fraction is normal. The Ejection Fraction estimate is 55-60%. Doppler measurements suggest pseudonormalized left ventricular relaxation, which is associated with grade II/IV or mild to moderate diastolic dysfunction. Regional wall motion abnormalities cannot be excluded due to limited visualization. T he left ventricular apex is not well visualized. Severe LAE. Valvular structures are not well visualized. Moderate TR. Moderate to severe pulmonary hypertension with pressures beteween 58 and 63 mmHg. No prior studies for comparison. MMode/2D Measurements & Calculations RVDd: 4.3 cm LVIDd: 5.6 cm FS: 36.3 % Ao root diam: 3.8 cm IVSd: 1.2 cm LVIDs: 3.6 cm EDV(Teich): 152.3 ml Ao root area: 11.1 cm2 LVPWd: 1.1 cm ESV(Teich): 52.8 ml LA dimension: 5.2 cm EF(Teich): 65.3 % Doppler Measurements & Calculations MV E max danilo: MV P1/2t max danilo: Ao V2 max: LV V1 max P.2 cm/sec 118.1 cm/sec 125.4 cm/sec 2.9 mmHg MV A max danilo: MV P1/2t: 55.7 msec Ao max P.3 mmHgLV V1 max: 62.7 cm/sec MVA(P1/2t): 4.0 cm2 84.5 cm/sec MV E/A: 1.6 MV dec slope: 621.5 cm/sec2 MV dec time: 0.24 sec PA V2 max: TR max danilo: MV P1/2t-pr_phl: 127.8 cm/sec 363.8 cm/sec 55.7 msec PA max P.5 mmHg TR max P.9 mmHg Left Ventricle The left ventricle is normal in size, thickness and function. The left ventricular ejection fraction is normal. The Ejection Fraction estimate is 55- 60%. Doppler measurements suggest pseudonormalized left ventricular relaxation, which is associated with grade II/IV or mild to moderate diastolic dysfunction. Regional wall motion abnormalities cannot be excluded due to limited visualization. The left ventricular apex is not well visualized. Right Ventricle The right ventricle is not well visualized secondary to technical limitations. Atria Right atrium not well visualized secondary to technical limitations. The left atrium is severely dilated. Interarterial septum not well visualized and not well dopplered. Cannot comment on ASD/PFO presence. Mitral Valve There is mild mitral leaflet calcification. There is no evidence of mitral valve prolapse. There is no mitral valve stenosis. There is a mild amount of mitral regurgitation. Aortic Valve The aortic valve is moderately calcified. The aortic valve is not well visualized secondary to technical limitations. There is no aortic valve stenosis. No aortic regurgitation is present. Tricuspid Valve The tricuspid valve is not well visualized secondary to technical limitations. There is no tricuspid valve prolapse. There is no tricuspid stenosis. There is a moderate amount of tricuspid regurgitation. Moderately to severely elevated pulmonary pressures and calculated between 50 and 63 mmHg. Pulmonic Valve The pulmonic valve is not well seen, but is grossly normal. The pulmonic valve is not well visualized. There is no pulmonic valvular stenosis. Great Vessels The inferior vena cava was not well visualized. Effusions The pericardium appears normal. There is no pleural effusion. : JOHAN DHILLON Antonio
[2020-03-27] MEDS: ATORVASTATIN CALCIUM 40 MG TABLET PO SCH (21:31)
[2020-03-27] MEDS: ASPIRIN 81 MG TABLET, ENT COATED PO SCH (21:31)
[2020-03-28] MEDS: HEPARIN SOD (PORCINE) 5,000 UNIT/ML 1 ML VIAL SUBCUT SCH ×3 (06:38→21:44)
[2020-03-28] MEDS: PANTOPRAZOLE SODIUM 40 MG TABLET.DR PO SCH (06:38)
[2020-03-28 08:00] LABS: ANION GAP 8 (5-19); BLOOD UREA NITROGEN 35 mg/dL (7-20); CALCIUM 8.9 mg/dL (8.4-10.2); CARBON DIOXIDE 24 mmol/L (22-30); CHLORIDE 105 mmol/L (98-107); GLUCOSE 124 mg/dL (75-110); POTASSIUM 4.1 mmol/L (3.6-5.0)
--- NOTE | 2020-03-28 08:21 | PDOC PROGRESS REPORT ---
Subjective Progress Note for:: 03/28/20 Subjective:: AUTUMN WATSON is a 89 year old male with history of coronary artery disease status post 2 vessel CABG in 2005, hypertension, hyperlipidemia, myocardial inf arction, heart failure, diabetes and sleep apnea who was admitted to our facility yesterday for evaluation of dyspnea and lower extremity edema as well as weight gain. I had been following this patient in my office for quite some time for chronic dyspnea. Unfortunately he began to gain weight and yesterday he was up to a weight gain of 11 pounds associated with shortness of breath and significant lower extremity edema. Today he is found sitting at the edge of the bed feeling slightly better. He has no new cardiac complaints. His LHC in May 2017 was significant for a 60-70% long distal stenosis of the SVG to the right PDA. No intervention was undertaken as the stenosis corresponded to an area of infarct on nuclear stress test without ischemia and because of the high risk nature of the potential intervention. His echocardiogram in the office several years ago demonstrated a normal ejection fraction. His lower extremity Doppler demonstrated 50-74% stenosis in the right lower extremity. His thallium viability study on 01/03/19 demonstrated that his inferior apical and basilar inferior ochoa are nonviable which corresponded to his 60-70% stenosis in the graft to the PDA. 03/28/2020: The patient had an uneventful night and is found sitting up at his bed eating breakfast without cardiovascular complaints. He actually feels 100% better and reports significant improvement in his lower extremity edema. His telemetry demonstrated sinus rhythm with PVCs. His fluid balance is -4680 mL. Physical exam on 03/28/2020: GENERAL: Pleasant and conversational. Oriented x3 with normal mood. Not in acute distress. Well groomed and well developed. HEENT: Normocephalic, atraumatic. Pupils equal. Sclerae anicteric. Oropharynx moist. NECK: No JVD. No carotid bruits. LUNGS: Clear to auscultation bilaterally with diminished breath sounds at both bases. Normal respiratory effort without the use of accessory muscles or intercostal retractions. CARDIOVASCULAR: Regular rate and rhythm, normal S1 and S2 without murmurs, rubs, or gallops. PMI not displaced. EXTREMITIES: Trace to 1+ pitting edema bilaterally, diffuse erythema bilaterally, no cyanosis, no clubbing. +2 pulses femoral and pedal pulses bilaterally. SKIN: No lesions or rashes. MUSCULOSKELETAL: No chest tenderness to palpation. NEUROLOGIC: Nonfocal. No gross sensory or motor deficits bilateral upper or lower extremities. Reason For Visit: NEW ONSET OF CONGESTIVE HEART FAILURE Physical Exam Vital Signs: Temp Pulse Resp BP Pulse Ox 97.7 F 70 17 125/49 L 96 03/28/20 05:00 03/28/20 05:00 03/28/20 05:00 03/28/20 05:00 03/28/20 05:00 Intake & Output 03/26/20 03/27/20 03/28/20 06:59 06:59 06:59 Intake Total 950 1300 Output Total 3380 3550 Balance -2430 -2250 Weight 101.1 kg 102.6 kg Results Laboratory Results: 03/27/20 02:27 03/27/20 02:27 03/26/20 03/26/20 03/26/20 13:20 13:20 20:24 Creatine Kinase 171 H 170 CK-MB (CK-2) 4.51 Troponin I < 0.012 NT-Pro-B Natriuret Pep 2750 H 03/26/20 03/27/20 03/27/20 20:24 02:27 02:27 Creatine Kinase 188 H CK-MB (CK-2) 4.58 H 4.97 H Troponin I 0.014 0.013 NT-Pro-B Natriuret Pep 3750 H 03/27/20 03/27/20 09:03 09:03 Creatine Kinase 176 H CK-MB (CK-2) 4.43 Troponin I < 0.012 NT-Pro-B Natriuret Pep Impressions: Chest X-Ray 03/26/20 12:40 IMPRESSION: MILD CARDIOMEGALY. POSSIBLE SMALL LEFT PLEURAL EFFUSION. 03/27/20 02:27 03/28/20 07:31 MCV 84 fl (80-97) 03/27/20 02:27 MCH 27.4 pg (27.0-33.4) 03/27/20 02:27 MCHC 32.6 g/dL (32.0-36.0) 03/27/20 02:27 RDW 16.5 % (11.5-14.0) H 03/27/20 02:27 Seg Neutrophils % 72.5 % (42-78) 03/27/20 02:27 Chloride 105 mmol/L (98-107) 03/28/20 07:31 Carbon Dioxide 24 mmol/L (22-30) 03/28/20 07:31 Anion Gap 8 (5-19) 03/28/20 07:31 Est GFR ( Amer) > 60 (>60) 03/28/20 07:31 Glucose 124 mg/dL (75-110) H 03/28/20 07:31 Calcium 8.9 mg/dL (8.4-10.2) 03/28/20 07:31 Magnesium 1.9 mg/dL (1.6-2.3) 03/27/20 02:27 Total Bilirubin 0.8 mg/dL (0.2-1.3) 03/26/20 13:20 AST 26 U/L (17-59) 03/26/20 13:20 Alkaline Phosphatase 66 U/L (38-126) 03/26/20 13:20 Total Protein 6.6 g/dL (6.3-8.2) 03/26/20 13:20 Albumin 3.7 g/dL (3.5-5.0) 03/26/20 13:20 Triglycerides 82 mg/dL (<150) 03/27/20 02:27 Cholesterol 109.05 mg/dL (0-200) 03/27/20 02:27 LDL Cholesterol Direct 57 mg/dL (<100) 03/27/20 02:27 VLDL Cholesterol 16.0 mg/dL (10-31) 03/27/20 02:27 HDL Cholesterol 42 mg/dL (>40) 03/27/20 02:27 Urine Color YELLOW 03/26/20 12:41 Urine Appearance CLEAR 03/26/20 12:41 Urine pH 5.0 (5.0-9.0) 03/26/20 12:41 Ur Specific [place] 1.009 03/26/20 12:41 Urine Protein 30 mg/dL (NEGATIVE) H 03/26/20 12:41 Urine Glucose (UA) NEGATIVE mg/dL (NEGATIVE) 03/26/20 12:41 Urine Ketones NEGATIVE mg/dL (NEGATIVE) 03/26/20 12:41 Urine Blood SMALL (NEGATIVE) H 03/26/20 12:41 Urine Nitrite NEGATIVE (NEGATIVE) 03/26/20 12:41 Ur Leukocyte Esterase LARGE (NEGATIVE) H 03/26/20 12:41 Urine WBC (Auto) 32 /HPF 03/26/20 12:41 Urine RBC (Auto) 4 /HPF 03/26/20 12:41 03/26/20 03/26/20 03/26/20 13:20 13:20 20:24 Creatine Kinase 171 H 170 CK-MB (CK-2) 4.51 Troponin I < 0.012 NT-Pro-B Natriuret Pep 2750 H 03/26/20 03/27/20 03/27/20 20:24 02:27 02:27 Creatine Kinase 188 H CK-MB (CK-2) 4.58 H 4.97 H Troponin I 0.014 0.013 NT-Pro-B Natriuret Pep 3750 H 03/27/20 03/27/20 09:03 09:03 Creatine Kinase 176 H CK-MB (CK-2) 4.43 Troponin I < 0.012 NT-Pro-B Natriuret Pep Current Medication List Generic Name Dose Route Start Last Admin Trade Name Mayur PRN Reason Stop Dose Admin Acetaminophen 650 mg 03/26/20 18:23 Tylenol 325 Mg Tablet PO 04/25/20 18:22 Q4HP PRN pain or temp greater than 101F Al Hydrox/Mg Hydrox/Simethicone 30 ml 03/26/20 18:23 Maalox Plus Susp 30 Udcup PO 04/25/20 18:22 Q4HP PRN HEARTBURN Aspirin 81 mg 03/26/20 22:00 03/27/20 21:31 Ecotrin 81 Mg Ec Tablet PO 04/25/20 21:59 81 mg QHS OUMOU Administration Atorvastatin Calcium 40 mg 03/26/20 22:00 03/27/20 21:31 Lipitor 40 Mg Tablet PO 04/25/20 21:59 40 mg QHS OUMOU Administration Furosemide 80 mg 03/26/20 22:00 03/27/20 21:31 Lasix Inj/Pf 100 Mg/10 Ml Sdv IV 04/25/20 21:59 80 mg Q12 OUMOU Administration Heparin Sodium (Porcine) 5,000 unit 03/26/20 22:00 03/28/20 06:38 Heparin Inj 5,000 Units/Ml 1 Ml Vial SUBCUT 04/25/20 21:59 5,000 unit Q8 OUMOU Administration Hydrophilic Ointment 1 applic 03/27/20 10:00 03/27/20 17:52 Aquaphor W-Letty Heal Oint 50 Gm TOP 04/26/20 09:59 1 applic BID OUMOU Administration Isosorbide Mononitrate 60 mg 03/26/20 22:00 03/27/20 21:31 Imdur 60 Mg Tablet.Er PO 04/25/20 21:59 60 mg Q12 OUMOU Administration Losartan Potassium 100 mg 03/27/20 10:00 03/27/20 10:00 Cozaar 50 Mg Tablet PO 04/26/20 09:59 100 mg DAILY OUMOU Administration Magnesium Hydroxide 30 ml 03/26/20 18:23 Milk Of Magnesia 30 Ml Udcup PO 04/25/20 18:22 HSP PRN FOR CONSTIPATION Pantoprazole Sodium 40 mg 03/27/20 06:00 03/28/20 06:[address] Tablet PO 04/26/20 05:59 40 mg Q6AM OUMOU Administration Promethazine HCl 12.5 mg 03/26/20 18:23 Phenergan Inj 25 Mg/1 Ml Vial IV 04/25/20 18:22 Q4HP PRN FOR NAUSEA/VOMITING Sodium Chloride 2.5 ml 03/26/20 22:00 03/28/20 06:40 Saline Flush 2.5 Ml Monoject Prefil Syrin IV 04/25/20 21:59 2.5 ml Q8 OUMOU Administration Tamsulosin HCl 0.4 mg 03/27/20 18:00 03/27/20 17:47 Flomax 0.4 Mg Cap.Sr PO 04/26/20 17:59 0.4 mg QPM OUMOU Administration Discontinued Medications Generic Name Dose Route Start Last Admin Trade Name Freq PRN Reason Stop Dose Admin Furosemide 80 mg 03/26/20 17:11 03/26/20 17:30 Lasix Inj/Pf 40 Mg/4 Ml Sdv IV 03/26/20 17:12 80 mg NOW ONE Administration Assessment & Plan - Diagnosis (1) CAD (coronary artery disease) Qualifiers: Coronary Disease-Associated Artery/Lesion type: [place] artery [place] vs. transplanted heart: [place] heart Associated angina: without angina Qualified Code(s): I25.10 - Atherosclerotic heart disease of [place] coronary artery without angina pectoris Is this a current diagnosis for this admission?: Yes Plan: 70% occlusion of the graft to the PDA which correlates with an area of infarct but no active ischemia on nuclear stress testing therefore no intervention was undertaken. His thallium viability study confirmed the presence of non-viability of the myocardium supplied by the graft to the PDA which is 60-70% stenosed therefore there is no reason to intervene in that vessel. He continues to deny angina and angina equivalents. His cardiac enzymes are normal during this hospitalization. Recommendations: -Continue with outpatient medical regimen. -Continue with clinical observation. (2) Heart failure with preserved ejection fraction Plan: The patient is 100% improved and asymptomatic. His fluid balance is -4680 cc since admission. He has remained asymptomatic and is ready to be discharged home. His potassium is within normal limits and his renal function is stable as of this morning. Recommendations: -Discontinue IV Lasix. -Start Lasix 80 mg p.o. twice daily. -P.o. potassium supplementation. -Restrict fluid intake to 1500 cc daily. -Low sodium diet, less than 1500 mg daily. -Strict intake and output. -Daily weights. -Follow-up with Dr. Mcnamara. (3) Hypertension Qualifiers: Hypertension type: essential hypertension Qualified Code(s): I10 - Essential (primary) hypertension Is this a current diagnosis for this admission?: Yes Plan: His blood pressure remains at goal. Recommendations: -Continue with current medical management.
[2020-03-28] MEDS: LOSARTAN POTASSIUM 50 MG TABLET PO SCH (09:43)
[2020-03-28] MEDS: ISOSORBIDE MONONITRATE 60 MG TAB.ER.24H PO SCH ×2 (09:44→21:43)
[2020-03-28] MEDS: FUROSEMIDE INJ/PF 100 MG/10 ML SDV IV SCH ×3 (09:46→12:11)
[2020-03-28] MEDS: PANTOT AC/MIN OIL/PET HY-PHL OINT 50 GM TOP SCH ×2 (09:56→18:02)
--- NOTE | 2020-03-28 16:40 | PDOC PROGRESS REPORT ---
Subjective Progress Note for:: 03/28/20 Subjective:: No adverse events overnight. No new complaints. He is doing well on room air at rest. He has not tried to get up and ambulate yet. He has had an excellent response to diuresis. Reason For Visit: NEW ONSET OF CONGESTIVE HEART FAILURE Physical Exam Vital Signs: Temp Pulse Resp BP Pulse Ox 97.3 F 62 16 129/54 H 95 03/28/20 09:00 03/28/20 09:00 03/28/20 09:00 03/28/20 09:00 03/28/20 09:00 Intake & Output 03/27/20 03/28/20 03/29/20 06:59 06:59 06:59 Intake Total 950 1300 555 Output Total 3380 3550 Balance -2430 -2250 555 Weight 101.1 kg 102.6 kg General appearance: PRESENT: no acute distress, cooperative, disheveled, obese Respiratory exam: PRESENT: crackles -right base, symmetrical, unlabored. ABSENT: accessory muscle use, chest wall tenderness, prolonged expiratory phas, rhonchi, tachypnea Cardiovascular exam: PRESENT: RRR - Occasional irregular beats, +S1, +S2 Pulses: PRESENT: normal carotid pulses Vascular exam: PRESENT: normal capillary refill GI/Abdominal exam: PRESENT: normal bowel sounds, soft. ABSENT: distended, guarding Extremities exam: PRESENT: pedal edema, +2 edema -distal to the thighs Musculoskeletal exam: PRESENT: normal inspection. ABSENT: deformity Neurological exam: PRESENT: alert, awake, oriented to person, oriented to place, oriented to situation Psychiatric exam: PRESENT: appropriate affect, normal mood Skin exam: PRESENT: dry, erythema - Cool symmetric bilateral lower extremity edema consistent with chronic venous insufficiency Results Laboratory Results: 03/27/20 02:27 03/28/20 07:31 03/28/20 07:31 Sodium 137.3 Potassium 4.1 Chloride 105 Carbon Dioxide 24 Anion Gap 8 BUN 35 H Creatinine 1.28 H Est GFR ( Amer) > 60 Glucose 124 H Calcium 8.9 03/26/20 12:41 Clean Catch Midstream Urine Culture - Final NO GROWTH 2 DAYS 03/26/20 03/26/20 03/26/20 13:20 13:20 20:24 Creatine Kinase 171 H 170 CK-MB (CK-2) 4.51 Troponin I < 0.012 NT-Pro-B Natriuret Pep 2750 H 03/26/20 03/27/20 03/27/20 20:24 02:27 02:27 Creatine Kinase 188 H CK-MB (CK-2) 4.58 H 4.97 H Troponin I 0.014 0.013 NT-Pro-B Natriuret Pep 3750 H 03/27/20 03/27/20 03/28/20 09:03 09:03 07:31 Creatine Kinase 176 H CK-MB (CK-2) 4.43 Troponin I < 0.012 NT-Pro-B Natriuret Pep 1480 H Impressions: Chest X-Ray 03/26/20 12:40 IMPRESSION: MILD CARDIOMEGALY. POSSIBLE SMALL LEFT PLEURAL EFFUSION. Assessment and Plan - Diagnosis (1) Acute exacerbation of congestive heart failure Qualifiers: Heart failure type: diastolic Qualified Code(s): I50.33 - Acute on chronic diastolic (congestive) heart failure Is this a current diagnosis for this admission?: Yes Plan: No recent echo on file, has been followed in the office by Dr. Hicks. Continued medical optimization and diuresis was recommended. No new echocardiog josafat was recommended. He has had an excellent response to diuresis thus far. Lasix has been switched to p.o. (2) Acute respiratory failure with hypoxia Is this a current diagnosis for this admission?: Yes Plan: Resolved. We will ambulate him to see how he tolerates activity. (3) Benign prostatic hyperplasia with nocturia Is this a current diagnosis for this admission?: Yes Plan: Continue Flomax (4) CAD (coronary artery disease) Qualifiers: Coronary Disease-Associated Artery/Lesion type: [place] artery [place] vs. transplanted heart: [place] heart Associated angina: without angina Qualified Code(s): I25.10 - Atherosclerotic heart disease of [place] coronary artery without angina pectoris Is this a current diagnosis for this admission?: Yes Plan: Continue outpatient regimen (5) Hyperglycemia due to type 2 diabetes mellitus Qualifiers: Diabetes mellitus long-term insulin use: without long-term use Qualified Code(s): E11.65 - Type 2 diabetes mellitus with hyperglycemia Is this a current diagnosis for this admission?: Yes Plan: Accu-Cheks and sliding scale insulin. Appears to be controlled with diet alone. Diabetic diet ordered. (6) Hypertension Qualifiers: Hypertension type: essential hypertension Qualified Code(s): I10 - Essential (primary) hypertension Is this a current diagnosis for this admission?: Yes Plan: Control has improved on the current regimen - Time Time Spent with patient: 15-24 minutes
[2020-03-28] MEDS: FUROSEMIDE 80 MG TABLET PO SCH (18:00)
[2020-03-28] MEDS: TAMSULOSIN HCL 0.4 MG CAP.SR.24H PO SCH (18:00)
[2020-03-28] MEDS: ATORVASTATIN CALCIUM 40 MG TABLET PO SCH (21:43)
[2020-03-28] MEDS: ASPIRIN 81 MG TABLET, ENT COATED PO SCH (21:43)
[2020-03-29] MEDS: HEPARIN SOD (PORCINE) 5,000 UNIT/ML 1 ML VIAL SUBCUT SCH (05:43)
[2020-03-29] MEDS: PANTOPRAZOLE SODIUM 40 MG TABLET.DR PO SCH (05:57)
--- NOTE | 2020-03-29 08:04 | PDOC PROGRESS REPORT ---
Subjective Progress Note for:: 03/29/20 Subjective:: AUTUMN WATSON is a 89 year old male with history of coronary artery disease status post 2 vessel CABG in 2005, hypertension, hyperlipidemia, myocardial inf arction, heart failure, diabetes and sleep apnea who was admitted to our facility yesterday for evaluation of dyspnea and lower extremity edema as well as weight gain. I had been following this patient in my office for quite some time for chronic dyspnea. Unfortunately he began to gain weight and yesterday he was up to a weight gain of 11 pounds associated with shortness of breath and significant lower extremity edema. Today he is found sitting at the edge of the bed feeling slightly better. He has no new cardiac complaints. His LHC in May 2017 was significant for a 60-70% long distal stenosis of the SVG to the right PDA. No intervention was undertaken as the stenosis corresponded to an area of infarct on nuclear stress test without ischemia and because of the high risk nature of the potential intervention. His echocardiogram in the office several years ago demonstrated a normal ejection fraction. His lower extremity Doppler demonstrated 50-74% stenosis in the right lower extremity. His thallium viability study on 01/03/19 demonstrated that his inferior apical and basilar inferior ochoa are nonviable which corresponded to his 60-70% stenosis in the graft to the PDA. 03/29/2020: The patient had an uneventful night and is found sitting up at his bed without cardiovascular complaints. He actually feels 100% better and reports significant improvement in his lower extremity edema. His telemetry demonstrated sinus rhythm with PVCs. His fluid balance continues to be negat david. Physical exam on 03/29/2020: GENERAL: Pleasant and conversational. Oriented x3 with normal mood. Not in acute distress. Well groomed and well developed. HEENT: Normocephalic, atraumatic. Pupils equal. Sclerae anicteric. Oropharynx moist. NECK: No JVD. No carotid bruits. LUNGS: Clear to auscultation bilaterally with diminished breath sounds at both bases. Normal respiratory effort without the use of accessory muscles or intercostal retractions. CARDIOVASCULAR: Regular rate and rhythm, normal S1 and S2 without murmurs, rubs, or gallops. PMI not displaced. EXTREMITIES: Trace pitting edema bilaterally, diffuse erythema bilaterally, no cyanosis, no clubbing. +2 pulses femoral and pedal pulses bilaterally. SKIN: No lesions or rashes. MUSCULOSKELETAL: No chest tenderness to palpation. NEUROLOGIC: Nonfocal. No gross sensory or motor deficits bilateral upper or lower extremities. Reason For Visit: NEW ONSET OF CONGESTIVE HEART FAILURE Physical Exam Vital Signs: Temp Pulse Resp BP Pulse Ox 98.4 F 74 17 117/46 L 99 03/28/20 23:51 03/29/20 02:00 03/28/20 23:51 03/28/20 23:51 03/28/20 23:51 Intake & Output 03/27/20 03/28/20 03/29/20 06:59 06:59 06:59 Intake Total 950 1300 1515 Output Total 3380 3550 1100 Balance -2430 -2250 415 Weight 101.1 kg 102.6 kg 101.6 kg Results Laboratory Results: 03/27/20 02:27 03/28/20 07:31 03/28/20 07:31 Sodium 137.3 Potassium 4.1 Chloride 105 Carbon Dioxide 24 Anion Gap 8 BUN 35 H Creatinine 1.28 H Est GFR ( Amer) > 60 Glucose 124 H Calcium 8.9 03/26/20 12:41 Clean Catch Midstream Urine Culture - Final NO GROWTH 2 DAYS 03/26/20 03/26/20 03/26/20 13:20 13:20 20:24 Creatine Kinase 171 H 170 CK-MB (CK-2) 4.51 Troponin I < 0.012 NT-Pro-B Natriuret Pep 2750 H 03/26/20 03/27/20 03/27/20 20:24 02:27 02:27 Creatine Kinase 188 H CK-MB (CK-2) 4.58 H 4.97 H Troponin I 0.014 0.013 NT-Pro-B Natriuret Pep 3750 H 03/27/20 03/27/20 03/28/20 09:03 09:03 07:31 Creatine Kinase 176 H CK-MB (CK-2) 4.43 Troponin I < 0.012 NT-Pro-B Natriuret Pep 1480 H Impressions: Chest X-Ray 03/26/20 12:40 IMPRESSION: MILD CARDIOMEGALY. POSSIBLE SMALL LEFT PLEURAL EFFUSION. 03/27/20 02:27 03/28/20 07:31 MCV 84 fl (80-97) 03/27/20 02:27 MCH 27.4 pg (27.0-33.4) 03/27/20 02:27 MCHC 32.6 g/dL (32.0-36.0) 03/27/20 02:27 RDW 16.5 % (11.5-14.0) H 03/27/20 02:27 Seg Neutrophils % 72.5 % (42-78) 03/27/20 02:27 Chloride 105 mmol/L (98-107) 03/28/20 07:31 Carbon Dioxide 24 mmol/L (22-30) 03/28/20 07:31 Anion Gap 8 (5-19) 03/28/20 07:31 Est GFR ( Amer) > 60 (>60) 03/28/20 07:31 Glucose 124 mg/dL (75-110) H 03/28/20 07:31 Calcium 8.9 mg/dL (8.4-10.2) 03/28/20 07:31 Magnesium 1.9 mg/dL (1.6-2.3) 03/27/20 02:27 Total Bilirubin 0.8 mg/dL (0.2-1.3) 03/26/20 13:20 AST 26 U/L (17-59) 03/26/20 13:20 Alkaline Phosphatase 66 U/L (38-126) 03/26/20 13:20 Total Protein 6.6 g/dL (6.3-8.2) 03/26/20 13:20 Albumin 3.7 g/dL (3.5-5.0) 03/26/20 13:20 Triglycerides 82 mg/dL (<150) 03/27/20 02:27 Cholesterol 109.05 mg/dL (0-200) 03/27/20 02:27 LDL Cholesterol Direct 57 mg/dL (<100) 03/27/20 02:27 VLDL Cholesterol 16.0 mg/dL (10-31) 03/27/20 02:27 HDL Cholesterol 42 mg/dL (>40) 03/27/20 02:27 Urine Color YELLOW 03/26/20 12:41 Urine Appearance CLEAR 03/26/20 12:41 Urine pH 5.0 (5.0-9.0) 03/26/20 12:41 Ur Specific [place] 1.009 03/26/20 12:41 Urine Protein 30 mg/dL (NEGATIVE) H 03/26/20 12:41 Urine Glucose (UA) NEGATIVE mg/dL (NEGATIVE) 03/26/20 12:41 Urine Ketones NEGATIVE mg/dL (NEGATIVE) 03/26/20 12:41 Urine Blood SMALL (NEGATIVE) H 03/26/20 12:41 Urine Nitrite NEGATIVE (NEGATIVE) 03/26/20 12:41 Ur Leukocyte Esterase LARGE (NEGATIVE) H 03/26/20 12:41 Urine WBC (Auto) 32 /HPF 03/26/20 12:41 Urine RBC (Auto) 4 /HPF 03/26/20 12:41 03/26/20 12:41 Clean Catch Midstream Urine Culture - Final NO GROWTH 2 DAYS 03/26/20 03/26/20 03/26/20 13:20 13:20 20:24 Creatine Kinase 171 H 170 CK-MB (CK-2) 4.51 Troponin I < 0.012 NT-Pro-B Natriuret Pep 2750 H 03/26/20 03/27/20 03/27/20 20:24 02:27 02:27 Creatine Kinase 188 H CK-MB (CK-2) 4.58 H 4.97 H Troponin I 0.014 0.013 NT-Pro-B Natriuret Pep 3750 H 03/27/20 03/27/20 03/28/20 09:03 09:03 07:31 Creatine Kinase 176 H CK-MB (CK-2) 4.43 Troponin I < 0.012 NT-Pro-B Natriuret Pep 1480 H Current Medication List Generic Name Dose Route Start Last Admin Trade Name Freq PRN Reason Stop Dose Admin Acetaminophen 650 mg 03/26/20 18:23 Tylenol 325 Mg Tablet PO 04/25/20 18:22 Q4HP PRN pain or temp greater than 101F Al Hydrox/Mg Hydrox/Simethicone 30 ml 03/26/20 18:23 Maalox Plus Susp 30 Udcup PO 04/25/20 18:22 Q4HP PRN HEARTBURN Aspirin 81 mg 03/26/20 22:00 03/28/20 21:43 Ecotrin 81 Mg Ec Tablet PO 04/25/20 21:59 81 mg QHS OUMOU Administration Atorvastatin Calcium 40 mg 03/26/20 22:00 03/28/20 21:43 Lipitor 40 Mg Tablet PO 07/04/20 21:59 40 mg QHS OUMOU Administration Furosemide 80 mg 03/28/20 18:00 03/28/20 18:00 Lasix 80 Mg Tablet PO 04/27/20 17:59 80 mg BID OUMOU Administration Heparin Sodium (Porcine) 5,000 unit 03/26/20 22:00 03/29/20 05:43 Heparin Inj 5,000 Units/Ml 1 Ml Vial SUBCUT 04/25/20 21:59 Not Given Q8 OUMOU Hydrophilic Ointment 1 applic 03/27/20 10:00 03/28/20 18:02 Aquaphor W-Letty Heal Oint 50 Gm TOP 04/26/20 09:59 1 applic BID OUMOU Administration Isosorbide Mononitrate 60 mg 03/26/20 22:00 03/28/20 21:43 Imdur 60 Mg Tablet.Er PO 04/25/20 21:59 60 mg Q12 OUMOU Administration Losartan Potassium 100 mg 03/27/20 10:00 03/28/20 09:43 Cozaar 50 Mg Tablet PO 04/26/20 09:59 100 mg DAILY OUMOU Administration Magnesium Hydroxide 30 ml 03/26/20 18:23 Milk Of Magnesia 30 Ml Udcup PO 04/25/20 18:22 HSP PRN FOR CONSTIPATION Pantoprazole Sodium 40 mg 03/27/20 06:00 03/29/20 05:[address] Tablet PO 04/26/20 05:59 40 mg Q6AM OUMOU Administration Promethazine HCl 12.5 mg 03/26/20 18:23 Phenergan Inj 25 Mg/1 Ml Vial IV 04/25/20 18:22 Q4HP PRN FOR NAUSEA/VOMITING Sodium Chloride 2.5 ml 03/26/20 22:00 03/29/20 05:59 Saline Flush 2.5 Ml Monoject Prefil Syrin IV 04/25/20 21:59 2.5 ml Q8 OUMOU Administration Tamsulosin HCl 0.4 mg 03/27/20 18:00 03/28/20 18:00 Flomax 0.4 Mg Cap.Sr PO 04/26/20 17:59 0.4 mg QPM OUMOU Administration Discontinued Medications Generic Name Dose Route Start Last Admin Trade Name Freq PRN Reason Stop Dose Admin Furosemide 80 mg 03/26/20 17:11 03/26/20 17:30 Lasix Inj/Pf 40 Mg/4 Ml Sdv IV 03/26/20 17:12 80 mg NOW ONE Administration Furosemide 80 mg 03/26/20 22:00 03/28/20 12:11 Lasix Inj/Pf 100 Mg/10 Ml Sdv IV 04/25/20 21:59 80 mg Q12 OUMOU Administration Assessment & Plan - Diagnosis (1) CAD (coronary artery disease) Qualifiers: Coronary Disease-Associated Artery/Lesion type: [place] artery [place] vs. transplanted heart: [place] heart Associated angina: without angina Qualified Code(s): I25.10 - Atherosclerotic heart disease of [place] coronary artery without angina pectoris Is this a current diagnosis for this admission?: Yes Plan: 70% occlusion of the graft to the PDA which correlates with an area of infarct but no active ischemia on nuclear stress testing therefore no intervention was undertaken. His thallium viability study confirmed the presence of non-viability of the myocardium supplied by the graft to the PDA which is 60-70% stenosed therefore there is no reason to intervene in that vessel. He continues to deny angina and angina equivalents. His cardiac enzymes are normal during this hospitalization. Recommendations: -Continue with outpatient medical regimen. -Continue with clinical observation. (2) Heart failure with preserved ejection fraction Plan: The patient is 100% improved and asymptomatic. His fluid balance continues to be negative with significant improvement in his LE edema. He is tolerating PO lasix at 80 mg bid. His potassium is within normal limits and his renal function is stable as of this morning. Recommendations: -Discharge home. -Follow-up with Dr. Mcnamara in one week. (3) Hypertension Qualifiers: Hypertension type: essential hypertension Qualified Code(s): I10 - Essential (primary) hypertension Is this a current diagnosis for this admission?: Yes Plan: His blood pressure remains at goal. Recommendations: -Continue with current medical management.
[2020-03-29] MEDS: FUROSEMIDE 80 MG TABLET PO SCH (09:05)
[2020-03-29] MEDS: LOSARTAN POTASSIUM 50 MG TABLET PO SCH (09:05)
[2020-03-29] MEDS: ISOSORBIDE MONONITRATE 60 MG TAB.ER.24H PO SCH (09:05)
[2020-03-29] MEDS: PANTOT AC/MIN OIL/PET HY-PHL OINT 50 GM TOP SCH (09:05)
[2020-03-29 10:37] VITALS: BP 110/42
--- NOTE | 2020-03-29 16:27 | PDOC DISCHARGE SUMMARY ---
Impression - Admit/DC Date/PCP Admission Date/Primary Care Provider: 03/26/20 17:28 FRANCISCA MARQUIS MD Discharge Date: 03/29/20 - Discharge Diagnosis (1) Acute exacerbation of congestive heart failure Is this a current diagnosis for this admission?: Yes (2) Acute respiratory failure with hypoxia Is this a current diagnosis for this admission?: Yes (3) Benign prostatic hyperplasia with nocturia Is this a current diagnosis for this admission?: Yes (4) CAD (coronary artery disease) Is this a current diagnosis for this admission?: Yes (5) Hyperglycemia due to type 2 diabetes mellitus Is this a current diagnosis for this admission?: Yes (6) Hypertension Is this a current diagnosis for this admission?: Yes - Additional Information Resuscitation Status: Full Code Discharge Diet: Cardiac, Diabetic Discharge Activity: Activity As Tolerated, Balance Activity w/Rest, Weigh Daily Referrals: MARTI FLYNN MD [ACTIVE PROVISIONAL STAFF] - FRANCISCA MARQUIS MD [Primary Care Provider] - Follow up as needed Prescriptions: Furosemide [Lasix 80 mg Tablet] 80 mg PO BID #60 tablet Atorvastatin Calcium [Lipitor 40 mg Tablet] 40 mg PO QHS #30 tablet Home Medications: Esomeprazole Magnesium 40 mg PO DAILY 03/26/20 Isosorbide Mononitrate [Imdur 60 mg Tablet.er] 60 mg PO Q12 03/26/20 Metoprolol Succinate [Toprol Xl 25 mg Tab.sr] 25 mg PO DAILY 03/26/20 Tamsulosin HCl [Flomax 0.4 mg Cap.sr] 0.4 mg PO QPM 03/26/20 Telmisartan 80 mg PO DAILY 03/26/20 Aspirin [Ecotrin 81 mg EC Tablet] 81 mg PO QHS tabec 03/29/20 Atorvastatin Calcium [Lipitor 40 mg Tablet] 40 mg PO QHS #30 tablet 03/29/20 Furosemide [Lasix 80 mg Tablet] 80 mg PO BID #60 tablet 03/29/20 History of Present Illiness History of Present Illness: AUTUMN WATSON is a 89 year old male with a history of coronary artery bypass graft surgery presents the emergency department for increased shortness of breath. He states that over the last 10 days he has gained 11 pounds. He was at Dr. Flynn's office today getting an echocardiogram. Unfortunately he was too short of breath to complete the study and he was referred to the emergency department. He is found to be in ventricular bigeminy. He has pronounced lower extremity edema. His BUN is elevated as well. The patient will be admitted to the hospitalist service with Dr. Flynn consulted. An echocardiogram has been ordered as the study earlier today was incomplete. He will be monitored on telemetry with aggressive diuresis and serial laboratory studies monitoring electrolytes and renal function. Hospital Course Hospital Course: He responded very well to diuresis. He had a large volume diuresis over the span of a couple of days. He was initially requiring oxygen but was able to come off of it completely. He was able to ambulate on room air without getting hypoxic. He was started on oral Lasix at home. He was seen in consultation in the hospital by his environmental services associate Dr. Flynn. He will follow-up with Dr. Flynn in 1 week. He was provided with a prescription for his new home dose of Lasix. His labs and examination were reassuring and he was discharged in stable condition. Physical Exam Vital Signs: Temp Pulse Resp BP Pulse Ox 97.5 F 64 16 110/42 L 96 03/29/20 11:24 03/29/20 11:24 03/29/20 11:24 03/29/20 11:24 03/29/20 11:24 Intake & Output 03/28/20 03/29/20 03/30/20 06:59 06:59 06:59 Intake Total 1300 1515 Output Total 3550 1800 Balance -2250 -285 Weight 102.6 kg 101.6 kg General appearance: PRESENT: no acute distress, cooperative, disheveled, obese Respiratory exam: PRESENT: Clear to auscultation bilaterally, symmetrical, unlabored. ABSENT: accessory muscle use, chest wall tenderness, crackles, prolonged expiratory phase, rhonchi, tachypnea Cardiovascular exam: PRESENT: RRR - Occasional irregular beats, +S1, +S2 Pulses: PRESENT: normal carotid pulses Vascular exam: PRESENT: normal capillary refill GI/Abdominal exam: PRESENT: normal bowel sounds, soft. ABSENT: distended, guarding Extremities exam: PRESENT: pedal edema, +2 edema -distal to the thighs Musculoskeletal exam: PRESENT: normal inspection. ABSENT: deformity Neurological exam: PRESENT: alert, awake, oriented to person, oriented to place, oriented to situation Psychiatric exam: PRESENT: appropriate affect, normal mood Skin exam: PRESENT: dry, erythema - Cool symmetric bilateral lower extremity edema consistent with chronic venous insufficiency Results Laboratory Results: WBC 5.9 10^3/uL (4.0-10.5) 03/27/20 02:27 RBC 3.96 10^6/uL (4.35-5.55) L 03/27/20 02:27 Hgb 10.9 g/dL (13.5-17.0) L 03/27/20 02:27 Hct 33.4 % (37.9-51.0) L 03/27/20 02:27 MCV 84 fl (80-97) 03/27/20 02: MCH 27.4 pg (27.0-33.4) 03/27/20 02: MCHC 32.6 g/dL (32.0-36.0) 03/27/20 02: RDW 16.5 % (11.5-14.0) H 03/27/20 02:27 Plt Count 128 10^3/uL (150-450) L 03/27/20 02:27 Lymph % (Auto) 13.9 % (13-45) 03/27/20 02:27 [place] % (Auto) 10.1 % (3-13) 03/27/20 02:27 Eos % (Auto) 2.7 % (0-6) 03/27/20 02:27 Baso % (Auto) 0.8 % (0-2) 03/27/20 02:27 Absolute Neuts (auto) 4.3 10^3/uL (1.7-8.2) 03/27/20 02:27 Absolute Lymphs (auto) 0.8 10^3/uL (0.5-4.7) 03/27/20 02:27 Absolute Monos (auto) 0.6 10^3/uL (0.1-1.4) 03/27/20 02:27 Absolute Eos (auto) 0.2 10^3/uL (0.0-0.6) 03/27/20 02:27 Absolute Basos (auto) 0.0 10^3/uL (0.0-0.2) 03/27/20 02:27 Seg Neutrophils % 72.5 % (42-78) 03/27/20 02:27 Sodium 137.3 mmol/L (137-145) 03/28/20 07:31 Potassium 4.1 mmol/L (3.6-5.0) 03/28/20 07:31 Chloride 105 mmol/L (98-107) 03/28/20 07:31 Carbon Dioxide 24 mmol/L (22-30) 03/28/20 07:31 Anion Gap 8 (5-19) 03/28/20 07:31 BUN 35 mg/dL (7-20) H 03/28/20 07:31 Creatinine 1.28 mg/dL (0.52-1.25) H 03/28/20 07:31 Est GFR ( Amer) > 60 (>60) 03/28/20 07:31 Est GFR (MDRD) Non-Af 53 (>60) L 03/28/20 07:31 Glucose 124 mg/dL (75-110) H 03/28/20 07:31 Hemoglobin A1c % 6.7 % (4.7-6.0) H 03/27/20 02:27 Calcium 8.9 mg/dL (8.4-10.2) 03/28/20 07:31 Magnesium 1.9 mg/dL (1.6-2.3) 03/27/20 02:27 Total Bilirubin 0.8 mg/dL (0.2-1.3) 03/26/20 13:20 Direct Bilirubin 0.0 mg/dL (0.0-0.4) 03/26/20 13:20 Neonat Total Bilirubin Not Reportable 03/26/20 13:20 Neonat Direct Bilirubin Not Reportable 03/26/20 13:20 Neonat Indirect Bili Not Reportable 03/26/20 13:20 AST 26 U/L (17-59) 03/26/20 13:20 ALT 19 U/L (<50) 03/26/20 13:20 Alkaline Phosphatase 66 U/L (38-126) 03/26/20 13:20 Creatine Kinase 176 U/L (55-170) H 03/27/20 09:03 CK-MB (CK-2) 4.43 ng/mL (<4.55) 03/27/20 09:03 Troponin I < 0.012 ng/mL 03/27/20 09:03 NT-Pro-B Natriuret Pep 1480 pg/mL (<450) H 03/28/20 07:31 Total Protein 6.6 g/dL (6.3-8.2) 03/26/20 13:20 Albumin 3.7 g/dL (3.5-5.0) 03/26/20 13:20 Triglycerides 82 mg/dL (<150) 03/27/20 02:27 Cholesterol 109.05 mg/dL (0-200) 03/27/20 02:27 LDL Cholesterol Direct 57 mg/dL (<100) 03/27/20 02:27 VLDL Cholesterol 16.0 mg/dL (10-31) 03/27/20 02:27 HDL Cholesterol 42 mg/dL (>40) 03/27/20 02:27 Urine Color YELLOW 03/26/20 12:41 Urine Appearance CLEAR 03/26/20 12:41 Urine pH 5.0 (5.0-9.0) 03/26/20 12:41 Ur Specific [place] 1.009 03/26/20 12:41 Urine Protein 30 mg/dL (NEGATIVE) H 03/26/20 12:41 Urine Glucose (UA) NEGATIVE mg/dL (NEGATIVE) 03/26/20 12:41 Urine Ketones NEGATIVE mg/dL (NEGATIVE) 03/26/20 12:41 Urine Blood SMALL (NEGATIVE) H 03/26/20 12:41 Urine Nitrite NEGATIVE (NEGATIVE) 03/26/20 12:41 Urine Bilirubin NEGATIVE (NEGATIVE) 03/26/20 12:41 Urine Urobilinogen NEGATIVE mg/dL (<2.0) 03/26/20 12:41 Ur Leukocyte Esterase LARGE (NEGATIVE) H 03/26/20 12:41 Urine WBC (Auto) 32 /HPF 03/26/20 12:41 Urine RBC (Auto) 4 /HPF 03/26/20 12:41 U Hyaline Cast (Auto) 4 /LPF 03/26/20 12:41 Urine Bacteria (Auto) TRACE /HPF 03/26/20 12:41 Urine Mucus (Auto) RARE /LPF 03/26/20 12:41 Urine Ascorbic Acid NEGATIVE (NEGATIVE) 03/26/20 12:41 03/26/20 03/26/20 03/27/20 13:20 20:24 02:27 CK-MB (CK-2) 4.51 4.58 H 4.97 H Troponin I < 0.012 0.014 0.013 NT-Pro-B Natriuret Pep 2750 H 3750 H 03/27/20 03/28/20 09:03 07:31 CK-MB (CK-2) 4.43 Troponin I < 0.012 NT-Pro-B Natriuret Pep 1480 H Impressions: Chest X-Ray 03/26/20 12:40 IMPRESSION: MILD CARDIOMEGALY. POSSIBLE SMALL LEFT PLEURAL EFFUSION. Plan Time Spent: Greater than 30 Minutes Stroke Is this a Stroke Patient?: No Acute Heart Failure - Is this a Heart Failure Patient?: Yes Documentation of LVEF assessment?: Planned for after discharge LVEF: LVEF Less Than or Equal to 40% Anticoagulant Therapy: N/A Discharged on Evidence-Based Beta Blockers: Yes Discharged on ARNI?: No-Document Contraindications Reason(s) not discharged on ARNI: NYHA Class I or IV Discharged on ARB?: No-document contraindications Reason(s) not Discharged on ARB: Other - Discharge on CLYDE inhibitor ARB Reason - Other: Discharged on CLYDE inhibitor Discharged on ACEI?: Yes Follow-up Appointment scheduled within 7 days?: Yes
== END 2020-03-29 12:14 | disposition home or self-care (01) | DRG 291 ==
LOC: ER 12:12 → EH 17:28 → 4S 20:05
PROVIDERS: ADMIT Hospitalist; ATTEND Family Medicine
DX: I13.0 Hypertensive heart and chronic kidney disease with heart failure and stage 1 through stage 4 chronic kidney disease, or unspecified chronic kidney disease (principal); J96.01 Acute respiratory failure with hypoxia; I50.33 Acute on chronic diastolic (congestive) heart failure; N30.00 Acute cystitis without hematuria; I25.10 Atherosclerotic heart disease of native coronary artery without angina pectoris; N40.0 Benign prostatic hyperplasia without lower urinary tract symptoms; E11.65 Type 2 diabetes mellitus with hyperglycemia; R00.8 Other abnormalities of heart beat; E66.9 Obesity, unspecified; E78.5 Hyperlipidemia, unspecified; G47.30 Sleep apnea, unspecified; K21.9 Gastro-esophageal reflux disease without esophagitis; Z60.2 Problems related to living alone; R79.89 Other specified abnormal findings of blood chemistry; D63.1 Anemia in chronic kidney disease; N18.9 Chronic kidney disease, unspecified; L30.8 Other specified dermatitis; I25.2 Old myocardial infarction; Z68.33 Body mass index [BMI] 33.0-33.9, adult; Z79.899 Other long term (current) drug therapy; Z95.1 Presence of aortocoronary bypass graft; Z87.891 Personal history of nicotine dependence; Z88.2 Allergy status to sulfonamides; Z83.3 Family history of diabetes mellitus; Z82.49 Family history of ischemic heart disease and other diseases of the circulatory system
CPT/HCPCS: 36415; 71045; 80048; 80053; 80061; 81001; 82550; 82553; 83036; 83735; 83880; 84484; 85025; 87086; 93005; 93010; 93306; 99285; J1644; J1940; J3490